=== PATIENT | female | born 1985 | race Caucasian/White ===

== ENCOUNTER 2017-07-09 06:00 | Inpatient (IN) ==
--- OUTSIDE RECORDS SUMMARY | 2017-07-09 06:38 | External Medical Summary | Continuity of Care Document ---
:1985 Author Organization [facility] Address [address] [place], [place] [address] Phone Support Name Relationship Address Phone Delaney Bañuelos spouse [address] [phone] [place] [address] Allergies, Adverse Reactions, Alerts Substance Reaction Severity Status No Known Drug Allergies Unknown Active Medications Medication Instructions Dosage Effective Dates Status Comments (start - stop) Plus with take 1 tablet by Not Available - Active Iron (calcium ORAL route every carbonate) 27 mg-1 day mg Tab Tylenol 325 mg Tab take 1 tablet - Active (325MG) by oral route every 4 hours as needed Zyrtec 10 mg take 1 tablet by 10 MG - Active tablet oral route every day as needed Problems Condition Effective Dates (start - stop) Clinical Status Encounter for suprvsn of normal - , third trimester 30 weeks gestation of - Suprvsn of preg w poor reprodctv or - obstet hx, second tri Partial placenta previa NOS or w/out - hemorrhage, second trimester 18 weeks gestation of - Suprvsn of preg w poor reprodctv or - obstet hx, third tri Partial placenta previa NOS or w/out - hemorrhage, third trimester 30 weeks gestation of - Maternal care for excess growth, - second tri, unsp Encounter for suprvsn of normal - , second trimester 18 weeks gestation of - Partial placenta previa NOS or w/out - hemorrhage, second trimester Encounter for suprvsn of normal - , second trimester 27 weeks gestation of - 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) w/o abn findings Pap Smear Screening, Cervix Encounter for surveillance of contraceptive pills Encntr screen for infections w sexl - mode of transmiss Encounter for screening for oth - infec/parastc diseases Encounter for suprvsn of normal - , first trimester Encounter for screening of - mother 10 weeks gestation of - Encounter for suprvsn of normal - , second trimester 22 weeks gestation of - Encounter for suprvsn of normal - , second trimester 14 weeks gestation of - Encounter for suprvsn of normal - , third trimester 32 weeks gestation of - Active Procedures Procedure Date Immuniz admnin, 1 vac, sngl/combo 19 Yrs + OB Visit No Charge Results Test Name Date and Time Measure Units Reference Range Abnormal Flag Comments Unknown Advance Directives Directive Yes / No Effective Date File Name Unknown Encounters Encounter Practice Location Reason(s) Diagnoses Date Provider Care Team Description For Visit Members Kala Ames Encounter for May- Chamorro Referring In Womens suprvsn of normal 5-201 Argelia. Provider: Health [place], , third 7 700 Argelia Chamorro PO Box [id number] weeks Medical , 700 1522, gestation of [facility], Dr [facility] Dr [address], 120, [place] 120, [id number], Kwaku Ames, [facility], [place], tel: [phone]. [phone] , [place]. tel: tel: [phone] Kala Ames Encounter for May- Chamorro Referring In Womens suprvsn of normal 3-201 Argelia. Provider: Health [place], , third 7 700 Argelia Chamorro PO Box [id number] weeks Medical K, 700 1522, gestation of [facility], [place] [address], 120, [place] 120, [id number], Kwaku Ames, [facility], [place], tel: [phone]. , [place]. tel: tel: [phone] [facility] Suprvsn of preg w Aug-0 Chamorro Referring In Womens Ultrasound poor reprodctv or 3-201 Argelia. Provider: Zina ALVAREZ, obstet hx, third 7 700 Argelia Chamorro PO Box [facility], 700 1522, placenta previa [facility], NOS or w/out , [facility] Dr PARKER, hemorrhage, third 120, [place] 120, [id number], [email or web address] weeks Kwaku Ames, gestation of KE[place], [place], tel: [phone]. , [place]. tel: tel: [phone] [facility] Partial placenta Apr- Chamorro Referring In Womens previa NOS or 1-201 Argelia. Provider: Zina ALVAREZ, w/out hemorrhage, 7 700 Argelia Chamorro PO Box [facility] Medical , 700 1522, trimesterEncounte [facility], for suprvsn of , [facility] Dr [address]ARKER, normal , 120, [place] 120, [id number], second Kwaku Ames, [place] [id number] weeks KEITH PARKER, tel: gestation of [phone]. , [place]. tel: tel: [phone] [facility] Encounter for Darek-0 Chamorro Referring In Womens suprvsn of normal 6-201 Argelia. Provider: Zina ALVAREZ, , second 7 700 Argelia Chamorro PO Box [email or web address] weeks Medical K, 700 1522, gestation of [facility], , [facility] Dr [address]ARKER, 120, [place] 120, , Kwaku Ames, [place] KEITH P[place]ER, tel: [phone]. , [place]. tel: tel: [phone] Kala Ames Suprvsn of preg w February-1 [place] Referring In Womens poor reprodctv or 1-201 Argelia. Provider: Zina ALVAREZ, obstet hx, second 7 700 Argelia Chamorro PO Box [facility], 700 1522, placenta previa [facility], NOS or w/out , [facility] Dr PARKER, hemorrhage, 120, [place] 120, , second Kwaku Ames, weeks KEITH PARKER, tel: gestation of [phone]. , [place]. tel: tel: [phone] Kala Ames Maternal care for May- Chamorro Referring In Womens Ultrasound excess -201 Argelia. Provider: Health KIM, growth, second 7 700 Argelia Chamorro PO Box tri, [facility], 700 1522, unspEncounter for [facility], suprvsn of normal , [facility] Dr [address]ARKER, , second 120, [place] 120, , [email or web address] weeks Kwaku Ames, gestation of KEITH PARKER, tel: [phone]. , [place]. tel: tel: [phone] Kala Ames Encounter for Apr- Chamorro Referring In Womens suprvsn of normal -201 Argelia. Provider: Health KIM, , second 7 700 Argelia Chamorro PO Box [id number] weeks [facility], 700 1522, gestation of [facility], Dr, [facility] Dr PARKER, 120, [place] 120, , Kwaku Ames, KEITH PARKER, tel: [phone]. , [place]. tel: tel: [phone] Kala Ames Encntr screen for Mar-1 Chamorro Referring In Womens infections w sexl 4-201 Argelia. Provider: Health KIM, mode of 7 700 Argelia [place]amorro PO Box [facility], 700 1522, r for screening [facility], for oth , [facility] Dr PARKER, infec/parastc 120, [place] 120, , diseasesEncounter Kwaku Ames, for suprvsn of [place], KEITH, tel: normal , [phone]. first , [place]. 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 Provider: Zina ALVAREZ, (routine) w/o abn 6 700 Argelia Chamorro PO Box findingsPap Smear Medical K, 700 1522, Screening, [place], CervixEncjuan jose Schmidt, [facility] Dr [address]ER, for surveillance 120, [place] 120, , of contraceptive [place], [place], tel:[phone]. , [place]. tel: tel: [phone] Kala Ames Dec-2 Chamorro Referring In Womens 4-201 Argelia. Provider: Zina ALVAREZ, 5 700 Argelia [place]amorro PO Box Medical K, 700 1522, [place] [address], [facility] Dr [address]ARKER, 120, [place] 120, , Kwaku Ames, [place], [place], tel: [phone]. , [place]. tel: tel: [phone] Kala Ames Aug- Chamorro In Womens 1-201 Argelia. Zina ALVAREZ, 4 700 PO Box Medical 1522, [place] [address] [place]aney, [facility] [place], 120, , [place], [place], tel:[phone] , [place]. tel: [phone] Kala Ames Oct- Chamorro Referring In Womens 0-201 Argelia. Provider: Zina ALVAREZ, 2 700 Argelia [place]amorro PO Box Medical K, 700 1522, [place] [address], [facility] Dr PARKER, 120, [place] 120, , Kwaku Ames, [place], [place], tel: [phone]. , [place]. tel: tel: [phone] Kala Ames Mar- Chamorro In Womens 1-200 Argelia. Zina ALVAREZ, 9 700 PO Box Medical 1522, [place] [address] Delaney, [facility] [place], 120, [id number], [facility], tel:[phone] , [place]. tel: [phone] [facility] Darek-0 [place]am[place] In Womens 4-200 [facility], 8 700 [facility] [address], [address] Delaney, [place], 120, [id number], [facility] [place], tel:[phone] [address] , [place]. tel: [phone] Family History Family Member Diagnosis Age At Onset No family history of Ovarian Cancer No family history of Hypertension No family history of Diabetes No family history of Pulmonary Embolism Mother Uterine Cancer 56 No family history of Thyroid Disorder Maternal Grandmother Lymphoma No family history of Osteoporosis No family history of Breast Cancer No family history of Colon Cancer No family history of Venous Thrombosis No family history of Cardiovascular Disease No family history of Stroke Immunizations Vaccine Date Status Comments Tdap completed Source: New Immunization Record Tdap completed Source: New Immunization Record Influenza, injectable, completed Note: Invalid documented admin quadrivalent, preservative free, date was . ; 3 yrs or older Source: Other Provider Payers Payer name Insurance type Covered republican ID Authorization(s) [facility] [id number] [facility] [id number] [facility] [id number] Social History Type Description Quantity Date Captured Alcohol Use Details No Caffeine Use Details Unknown Tobacco Use Status Unknown Smoking Status Never smoker Vital Signs Date / Height Weight BMI Pulse Blood Temperature Respiratory Body Head BMI Time: Rate Pressure Rate Surface Circumference percentile Area 6 9:50 kg/m AM eter (2) 164.20 26.5 110/64 -2017 lbs 0 mm[Hg] 9:55 kg/m AM eter (2) Chief Complaint And Reason For Visit Unknown Chief Complaint And Reason For Visit Reason For Referral Reason For Referral Unknown Plan Of Care Date Type Action Status Appointment Kelley Bañuelos BOOKED Future Order: Radiology Order Ultrasound OB Follow-up ([id number]) Ordered Future Order: Radiology Order Complete OB Ultrasound > 14 Ordered Weeks ([id number]) Future Order: Lab Order Pap Smear With HPV Reflex If ASCUS Ordered ([id number]) Date Type Problem Goal Intervention Status Start Date Unknown. History Of Present Illness Encounter Date Complaint History Of Present Illness This patient has no known history of present illness Functional Status Encounter Date Functional Assessment Cognitive Assessment Unknown Medications Administered Medication Instructions Dosage Effective Dates (start - stop) Status Comments Drug Treatment Unknown Instructions Date Instruction Additional Information gestational glucose lab screening domestic violence seat belt use childbirth classes / hospital facilities hospital registration genetic testing HIV and other routine tests risk factors identified by history anticipated course of care nutrition and weight gain counseling, special diet toxoplasmosis precautions (cats / raw meat) sexual activity exercise indications for ultrasound influenza vaccine environmental / work hazards travel use of any medications (including supplements, vitamins, herbs, OTC drugs)
--- OUTSIDE RECORDS SUMMARY | 2017-07-09 06:38 | External Medical Summary | Continuity of Care Document ---
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) w/o abn findings Pap [...] third trimester 32 weeks gestation of - Encounter for suprvsn of normal - , third trimester 30 weeks gestation of - Active Procedures Procedure Date Immuniz admnin, 1 vac, sngl/combo 19 Yrs + TDAP VACCINE >7 IM Results Test Name Date and Time Measure Units Reference Range Abnormal Flag Comments Unknown Advance Directives Directive Yes / No Effective Date File Name Unknown Encounters Encounter Practice Location Reason(s) Diagnoses Date Provider Care Team Description For Visit Members Kala Ames Encounter for Chamorro Referring In Womens suprvsn of normal 5-201 Argelia. Provider: Health [place], , third 7 700 Argelia Chamorro PO Box weeks Medical , 700 1522, gestation of [place], ariadna Schmidt, [facility] Dr [address]ARKER, 120, [place] 120, [id number], Kwaku Ames, [facility], [place], tel: [phone]. , [place]. tel: tel: [phone] Kala Ames Chamorro Referring In Womens 4-201 Argelia. Provider: Health [place], 7 700 Argelia [place]amorro PO Box Medical , 700 1522, [place]zar, , [facility] Dr [address]ARKER, 120, [place] 120, [id number], Kwaku Ames, [place], [place], tel: [phone]. , [place]. tel: tel: [phone] Kala Ames Encounter for Aug-0 Chamorro Referring In Womens suprvsn of normal 3-201 Argelia. Provider: Zina ALVAREZ, , third 7 700 Argelia [place]amorro PO Box [id number] weeks Medical K, 700 1522, gestation of [facility], , [facility] Dr [address]ARKER, 120, [place] 120, , Kwaku Ames, [place], [place], tel: [phone]. , [place]. tel: tel: [phone] Kala Ames Suprvsn of preg w Aug-0 Chamorro Referring In Womens Ultrasound poor reprodctv or 3-201 Argelia. Provider: Zina ALVAREZ, obstet hx, third 7 700 Argelia [place]amorro PO Box triPartial Medical K, 700 1522, [facility] or w/out , [facility] Dr PARKER, hemorrhage, third 120, [place] 120, , [id number] weeks Kwaku Ames, [place] gestation of KEITH, KEITH, tel: [phone]. , [place]. tel: tel: [phone] Kala Ames Partial placenta Nitish-1 Chamorro Referring In Womens previa NOS or 1-201 Argelia. Provider: Zina ALVAREZ, w/out hemorrhage, 7 700 Argelia Chamorro PO Box second Medical K, 700 1522, trimesterEncounte [facility], r for suprvsn of Dr, [facility] Dr PARKER, normal , 120, [place] 120, [id number], second Kwaku Ames, [place] [email or web address] weeks KEITH [place], tel: gestation of [phone]. , [place]. tel: tel: [phone] Kala Ames Encounter for Darek-0 Chamorro Referring In Womens suprvsn of normal 6-201 Argelia. Provider: Zina ALVAREZ, , second 7 700 Argelia [place]amorro PO Box [id number] weeks Medical , 700 1522, [facility], , [facility] Dr PARKER, 120, [place] 120, [id number], Kwaku Ames, KEITH PARKER, tel: [phone]. , [place]. tel: tel: [phone] Kala Ames Suprvsn of preg w February- Chamorro Referring In Womens poor reprodctv or -201 Argelia. Provider: Zina ALVAREZ, obstet hx, second 7 [address] [facility] 700 1522, placenta previa [facility], NOS or w/out , [facility] Dr PARKER, hemorrhage, 120, [place] 120, , second Kwaku Ames, weeks KEITH PARKER, tel: gestation of [phone]. , [place]. tel: tel: [phone] Kala Ames Maternal care for February- Chamorro Referring In Womens Ultrasound excess - Argelia. Provider: Zina ALVAREZ, growth, second 7 700 Argelia Chamorro PO Box [facility], 700 1522, unspEncounter for [facility], suprvsn of normal , [facility] Dr PARKER, , second 120, [place] 120, [id number], weeks Kwaku Ames, gestation of KEITH PARKER, tel: [phone]. , [place]. tel: tel: [phone] Kala Ames Encounter for Apr-1 Chamorro Referring In Womens suprvsn of normal -201 Argelia. Provider: Zina ALVAREZ, , second 7 700 Argelia Chamorro PO Box weeks [facility], 700 1522, gestation of [facility], , [facility] Dr [address]ARKER, 120, [place] 120, , Kwaku Ames, KEITH [place], tel: [phone]. , [place]. tel: tel: [phone] Kala Ames Encntr screen for Mar-1 Chamorro Referring In Womens infections w sexl 4-201 Argelia. Provider: Zina ALVAREZ, mode of 7 700 Argelia Chamorro PO Box transmissEncounte Medical , 700 1522, r for screening [facility], for oth , [facility] Dr [address]ARKER, infec/parastc 120, [place] 120, , diseasesEncounter Kwaku Fate, for suprvsn of [place], [place], tel: normal , [phone]. [facility] , [place]. tel: trimesterEncounte tel: [phone] r for [phone] screening of [id number] weeks gestation of [facility] [place] Encntr for adult live in caregiver Darek- Chamorro Referring In Womens exam (general) 4-201 Argelia. Provider: Zina ALVAREZ, (routine) w/o abn 6 700 Argelia Chamorro PO Box findingsPap Smear Medical , 700 1522, Screening, [place], CervixEncjuan jose Schmidt, [facility] Dr PARKER, for surveillance 120, [place] 120, , of contraceptive Kwaku [facility] pills [place], tel: [phone]. , [place]. tel: tel: [phone] Kala Ames Dec- Chamorro Referring In Womens 4-201 Argelia. Provider: Zina ALVAREZ, 5 700 Argelia [place]amorro PO Box Medical , 700 1522, [place] [address], [facility] Dr PARKER, 120, [place] 120, , Kw[place], [place], tel: [phone]. , [place]. tel: tel: [phone] Kala Ames Aug- Chamorro In Womens 1-201 Argelia. Zina ALVAREZ, 4 700 PO Box Medical 1522, [address] [address], [facility] KEITH, 120, [id number], [facility], tel:[phone] , [place]. tel: [phone] Kala Ames Oct- Chamorro Referring In Womens 0-201 Argelia. Provider: Zina ALVAREZ, 2 700 Argelia [place]amorro PO Box Medical , 700 1522, [place] [address], [facility] [place], 120, [place] 120, [id number], [facility] [place], [place], tel: [phone]. , [place]. tel: tel: [phone] [facility] [place] Darek-1 Chamorro In Womens 1-200 Argelia. Health [place], 9 700 PO Box Medical 1522, [address] [address]aney, [facility] KEITH, 120, [id number], [facility] [place], tel: [phone] , [place]. tel: [phone] [facility] Darek-0 Chamorro In Womens 4-200 Argeila. Health [place], 8 700 PO Box Medical 1522, [address] [address]aney, [facility] KEITH, 120, [id number], [facility] [place], tel: [phone] , [place]. tel: [phone] Family History Family Member Diagnosis Age At [...] Provider Payers Payer name Insurance type Covered democrat ID Authorization(s) [facility] [id number] [facility] [id number] [facility] [id number] Social History Type Description Quantity Date Captured Unknown Vital Signs Date / Height Weight BMI Pulse Blood Temperature Respiratory Body Head BMI Time: Rate Pressure Rate Surface Circumference percentile Area Unknown Chief Complaint And Reason For Visit Unknown Chief Complaint And Reason For Visit Reason For Referral Reason For Referral Unknown Plan Of Care Date Type Action Status Appointment Kelley Bañuelos BOOKED Future Order: Radiology Order Ultrasound OB Follow-up ([id number]) Ordered Future Order: Radiology Order Complete OB Ultrasound > 14 Ordered Weeks ([id number]) Future Order: Lab Order Pap Smear With [...]
--- OUTSIDE RECORDS SUMMARY | 2017-07-09 06:38 | External Medical Summary | Continuity of Care Document ---
:1985 Author Organization [facility] Address [address] [place], [place] [address] Phone Support Name Relationship Address Phone Delaney Bañuelos spouse [address] [phone] [place] [address] Allergies, Adverse Reactions, Alerts Substance Reaction Severity [...] Effective Dates (start - stop) Clinical Status Partial placenta previa NOS or w/out - hemorrhage, second trimester Encounter for suprvsn of normal - , second trimester 27 weeks gestation of - Suprvsn of preg w poor reprodctv or - obstet hx, second tri Partial placenta previa NOS or w/out - hemorrhage, second trimester 18 weeks gestation of - Maternal care for excess growth, - second tri, unsp Encounter for suprvsn of normal - , second trimester 18 weeks gestation of - 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 Pap [...] second trimester 14 weeks gestation of - Active Procedures Procedure Date OB Visit No Charge Hemoglobin count, colorimetric Hematocrit blood count Glucose test Venpnctr fngr/heel/ear stick routne Results Test Name Date and Time Measure Units Reference Range Abnormal Flag Comments Panel Description: Glucose [Mass/volume] in Serum or Plasma --1 hour post 50 g glucose PO GLUCOSE, 111 mg/dL <140 N Test performed at [employer] GESTATIONAL SCREEN 09:55:00 M[employer] [id number] ([id number])-[address] [place] [address]Uuurvzzk: KVNG MAHARAJ DO,MPH Panel Description: HEMOGLOBIN + HEMATOCRIT HEMOGLOBIN 09:55:00 11.8 g/dL 11.7-15.5 N HEMATOCRIT 09:55:00 34.9 % 35.0-45.0 L REPORT COMMENT:FASTING :NOTest performed at [facility] [id number] [place] [address]Lhcgyubo: KVNG MAHARAJ DO,MPH Advance Directives Directive Yes / No Effective Date File Name Unknown Encounters Encounter Practice Location Reason(s) Diagnoses Date Provider Care Team Description For Visit Members Kala Ames Partial placenta Chamorro Referring In Womens previa NOS or 1201 Argelia. Provider: Health PA, w/out hemorrhage, 7 700 Argelia Chamorro PO Box [facility] Medical K, 700 1522, [facility] Medical delaney Baltazar for suprvsn of , [address] [place] [address] PARKER, normal , 120, Ugo 120, [id number], second Kwaku Ames, weeks KEITH PARKER, tel:[phone] gestation of [phone]. [id number] , [place]. tel:[phone] tel: [phone] Kala Ames Encounter for Darek-0 Chamorro Referring In Womens suprvsn of normal 6-201 Argelia. Provider: Zina ALVAREZ, , second 7 700 Argelia Chamorro PO Box [id number] weeks Medical , 700 1522, gestation of [facility], , [facility] Dr PARKER, 120, Ugo 120, , Kwaku [place], [place], [place], tel: [phone]. , [place]. tel: tel: [phone] Kala Ames Suprvsn of preg w May-1 Chamorro Referring In Womens poor reprodctv or 1-201 Argelia. Provider: Zina ALVAREZ, obstet hx, second 7 700 Argelia Chamorro PO Box triPartial Medical , 700 1522, placenta previa [facility], NOS or w/out , [facility] Dr PARKER, hemorrhage, 120, Ugo 120, , second Kwaku Ames, [email or web address] weeks KEITH PARKER, tel: gestation of [phone]. , [place]. tel: tel: [phone] Kala Ames Maternal care for February-1 Chamorro Referring In Womens Ultrasound excess 1-201 Argelia. Provider: Zina ALVAREZ, growth, second 7 700 Argelia Chamorro PO Box tri, [facility], 700 1522, unspEncounter for [facility], suprvsn of normal , [facility] Dr PARKER, , second 120, Ugo 120, [id number], [email or web address] weeks Kwaku Ames, [place] gestation of KEITH, KEITH, tel: [phone]. , [place]. tel: tel: [phone] Kala Ames Encounter for Apr-1 Chamorro Referring In Womens suprvsn of normal 1-201 Argelia. Provider: Zina ALVAREZ, , second 7 700 Argelia Chamorro PO Box [email or web address] weeks [facility], 700 1522, gestation of [facility], , [facility] Dr PARKER, 120, Ugo 120, , Kwaku Ames, KEITH PARKER, tel:[phone]. , [place]. tel: tel: [phone] Kala Ames Encntr screen for Mar-1 Chamorro Referring In Womens infections w sexl - Argelia. Provider: Health KIM, mode of 7 700 Argelia Chamorro PO Box transmissEncounte Medical , 700 1522, r for screening [place], for oth , [facility] Dr PARKER, infec/parastc 120, Ugo 120, , diseasesEncounter Kwaku [place], for suprvsn of [place], tel: normal , [phone]. [facility] , [place]. 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 Provider: Zina ALVARZE, (routine) w/o abn 6 700 Argelia Chamorro PO Box findingsPap Smear Medical , 700 1522, Screening, [place] Betty Baltazar, CervixMaximus Schmidt, [facility] Dr PARKER, for surveillance 120, Ugo 120, , of contraceptive Kwaku Ames, pills KEITH PARKER, tel:[phone]. , [place]. tel: tel: [phone] Kala Ames Mar-2 Chamorro Referring In Womens - Argelia. Provider: Zina ALVAREZ, 5 700 Argelia Chamorro PO Box Medical K, 700 1522, [place] Betty Bal[address], [facility] Dr PARKER, 120, Ugo 120, , Kwaku Ames, KEITH [place], tel:[phone]. , [place]. tel: tel: [phone] Kala Ames Nov-1 Chamorro In Womens - Argelia. Health KIM, 4 700 PO Box Medical [address], [address], [facility] [place], 120, [id number], [facility] [place], tel: [phone] , [place]. tel: [phone] Kala Ames Oct- Chamorro Referring In Womens 0-201 Argelia. Provider: Health PA, 2 700 Argelia Chamorro PO Box Medical K, 700 1522, [place] Betty [address], [facility] [place], 120, Ugo 120, [id number], Kwaku [place], [place], [place], tel: [phone]. , [place]. tel: tel: [phone] Kala Ames Mar- Chamorro In Womens 1-200 Argelia. Health PA, 9 700 PO Box Medical 15[address], [place] Dr Delaney, [facility] [place], 120, [id number], [facility] [place], tel: [phone] , [place]. tel: [phone] Kala Ames Mar-0 Chamorro In Womens 4-200 Argelia. Health PA, 8 700 PO [place] Medical [address], [place] Dr Delaney, [facility] [place], 120, [id number], [facility] [place], tel: [phone] , [place]. tel: [phone] Family History Family Member Diagnosis Age At [...] Comments Tdap completed Source: New Immunization Record Influenza, injectable, completed Note: Invalid documented admin quadrivalent, preservative free, date was . ; 3 yrs or older Source: Other Provider Payers Payer name Insurance type Covered constitution party ID Authorization(s) [facility] [id number] [facility] [id number] Social History Type Description Quantity Date Captured Alcohol Use Details No Caffeine Use Details Unknown Tobacco Use Status Unknown Smoking Status Never smoker Vital Signs Date / Height Weight BMI Pulse Blood Temperature Respiratory Body Head BMI Time: Rate Pressure Rate Surface Circumference percentile Area 25.0 5 8:51 kg/m AM eter (2) 162.70 26.2 108/62 -2017 lbs 6 mm[Hg] 8:56 kg/m AM eter (2) Chief Complaint And Reason For Visit Unknown Chief Complaint And Reason For Visit Reason For Referral Reason For Referral Unknown Plan Of Care Date Type Action Status Appointment Kelley Bañuelos BOOKED Appointment Kelley Bañuelos BOOKED Future Order: Radiology Order Complete OB Ultrasound > 14 Ordered Weeks ([id number]) Future Order: Lab Order Pap Smear With [...]
--- OUTSIDE RECORDS SUMMARY | 2017-07-09 06:39 | External Medical Summary | Continuity of Care Document ---
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 Pap Smear Screening, Cervix Encounter for surveillance of contraceptive pills Encounter for suprvsn of normal - , first trimester Encntr screen for infections w sexl - mode of transmiss Encounter for screening for oth - infec/parastc diseases Encounter for screening of - mother 10 weeks gestation of - Encounter for suprvsn of normal - , second trimester 22 weeks gestation of - 14 weeks gestation of - Encounter for suprvsn of normal - , second trimester Encounter for suprvsn of normal - , third trimester 30 weeks gestation of - 34 weeks gestation of - Encounter for suprvsn of normal - , third trimester Active Procedures Procedure Date OB Visit No Charge Results Test Name Date and Time Measure Units Reference Range Abnormal Flag Comments Unknown Advance Directives Directive Yes / No Effective Date File Name Unknown Encounters Encounter Practice Location Reason(s) Diagnoses Date Provider Care Team Description For Visit Members Kala Ames 34 weeks Chamorro Referring In Womens gestation of 8-201 Argelia. Provider: [facility], pregnancyEncounte 7 700 Argelia Chamorro PO Box r for suprvsn of Medical K, 700 1522, normal , [facility], third trimester , [facility] Dr PARKER, 120, Ugo 120, [id number], Kwaku Ames, [facility], [place], tel:[phone]. [id number] , [place]. tel: tel: [phone] Kala Ames Encounter for Chamorro Referring In Womens suprvsn of normal 5-201 Argelia. Provider: [facility], , third 7 700 Argelia Chamorro PO Box [email or web address] weeks Medical K, 700 1522, gestation of [facility], , [facility] Dr PARKER, 120, Ugo 120, [id number], Kwaku Ames, [place] KEITH PARKER, tel: [phone]. , [place]. tel: tel: [phone] Kala Ames Encounter for Aug-0 Chamorro Referring In Womens suprvsn of normal 3-201 Argelia. Provider: Zina ALVAREZ, , third 7 700 Argelia [place]amorro PO Box [id number] weeks Medical , 700 1522, gestation of [facility], Dr, [facility] Dr PARKER, 120, Ugo 120, [id number], Kwaku [place], [place], tel: [phone]. , [place]. tel: tel: [phone] Kala Ames Suprvsn of preg w Aug-0 Chamorro Referring In Womens Ultrasound poor reprodctv or 3-201 Argelia. Provider: Zina ALVAREZ, obstet hx, third 7 700 Argelia Chamorro PO Box triPartial Medical , 700 1522, placenta previa [facility], NOS or w/out , [facility] Dr PARKER, hemorrhage, third 120, Ugo 120, [id number], [email or web address] weeks Kwaku Ames, gestation of [place], KEITH, tel: [phone]. , [place]. tel: tel: [phone] Kala Ames Partial placenta Nitish-1 Chamorro Referring In Womens previa NOS or 1-201 Argelia. Provider: Zina ALVAREZ, w/out hemorrhage, 7 700 Argelia Chamorro PO Box second Medical K, 700 1522, trimesterEncounte [facility], r for suprvsn of Dr, [facility] Dr PARKER, normal , 120, Ugo 120, [id number], second Kwaku Ames, [place] [email or web address] weeks KEITH PARKER, tel: gestation of [phone]. , [place]. tel: tel: [phone] Kala Ames Encounter for Darek-0 Chamorro Referring In Womens suprvsn of normal 6-201 Argelia. Provider: Zina ALVAREZ, , second 7 700 Argelia Chamorro PO Box [id number] weeks Medical K, 700 1522, gestation of [facility], Dr, [facility] Dr PARKER, 120, Ugo 120, , Kwaku Ames, KEITH PARKER, tel: [phone]. , [place]. tel: tel: [phone] Kala Ames Suprvsn of preg w Chamorro Referring In Womens poor reprodctv or Argelia. Provider: Zina ALVAREZ, obstet hx, second 7 700 Argelia Chamorro PO Box triPartial Medical , 700 1522, placenta previa [facility], NOS or w/out Dr, [facility] Dr PARKER, hemorrhage, 120, Ugo 120, , second Kwaku Ames, weeks KEITH PARKER, tel: gestation of [phone]. , [place]. tel: tel: [phone] Kala Ames Maternal care for Chamorro Referring In Womens Ultrasound excess Argelia. Provider: Zina ALVAREZ, growth, second 7 700 Argelia Chamorro PO Box tri, [facility], 700 1522, unspEncounter for [facility], suprvsn of normal Dr, [facility] Dr PARKER, , second 120, Ugo 120, [id number], [email or web address] weeks Kwaku Ames, gestation of KEITH KEITH, tel: [phone]. , [place]. tel: tel: [phone] Kala Ames 14 weeks Chamorro Referring In Womens gestation of Argelia. Provider: Zina ALVAREZ, pregnancyEncounte 7 700 Argelia [place]amorro PO Box r for suprvsn of [facility], 700 1522, normal , [facility], second trimester , [facility] Dr PARKER, 120, Ugo 120, [id number], Kwaku Ames, KEITH PARKER, tel: [phone]. , [place]. tel: tel: [phone] Kala Ames Encounter for Mar-1 Chamorro Referring In Womens suprvsn of normal 4-201 Argelia. Provider: Health KIM, , first 7 700 Argelia Chamorro PO Box trimesterEncntr Medical , 700 1522, screen for [facility] Delaney, infections w carlos eduardo Schmidt, [facility] Dr PARKER, mode of 120, Ugo 120, [id number], transmissEncounte Kwaku Ames, r for screening KEITH PARKER, tel: for oth [phone]. infec/parastc , [place]. 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 Provider: Zina ALVAREZ, (routine) w/o abn 6 700 Argelia Chamorro PO Box findingsPap Smear Medical , 700 1522, Screening, [facility] Delaney, CervixMaximus Schmidt, [facility] Dr PARKER, for surveillance 120, Ugo 120, , of contraceptive Kwaku Ames, pills KEITH, KEITH, tel:[phone]. , [place]. tel: tel: [phone] Kala Ames Dec-2 Chamorro Referring In Womens 4-201 Argelia. Provider: Zina ALVAREZ, 5 700 Argelia Chamorro PO Box Medical , 700 1522, [place] [address], [facility] Dr PARKER, 120, Ugo 120, , Kwaku Ames, KEITH, KEITH, tel: [phone]. , [place]. tel: tel: [phone] Kala Ames Aug- Chamorro In Womens 1-201 Argelia. Zina ALVAREZ, 4 700 PO Box Medical 1522, [place] Dr Delaney, [facility] KEITH, 120, , [facility] [place]ITH, tel:[phone] , [place]. tel: [phone] Kala Ames Semaj- Chamorro Referring In Womens 0-201 Argelia. Provider: Health PA, 2 700 Argelia Chamorro PO Box Medical K, 700 1522, [place] [address], [facility] [place], 120, Ugo 120, [id number], Kwaku [place], [place], [place], tel:[phone]. , [place]. tel: tel: [phone] Associates [facility] Darek-1 Chamorro In Womens 1-200 Argelia. Health PA, 9 700 PO Box Medical 1522, [place] Dr Delaney, [facility] [place], 120, [id number], [facility] [place], tel: [phone] , [place]. tel: [phone] Associates [facility] Darek-0 Chamorro In Womens 4-200 Argelia. Health PA, 8 700 PO Box Medical 1522, [place] Dr Delaney, [facility] [place], 120, [id number], [facility] [place], tel: [phone] , [place]. tel: [phone] Family History Family Member Diagnosis Age At [...] Provider Payers Payer name Insurance type Covered libertarian ID Authorization(s) [facility] KEITH [id number] [facility] KEITH [id number] [facility] [id number] Social History Type Description Quantity Date Captured Alcohol Use Details No Caffeine Use Details Unknown Tobacco Use Status Unknown Smoking Status Never smoker Vital Signs Date / Height Weight BMI Pulse Blood Temperature Respiratory Body Head BMI Time: Rate Pressure Rate Surface Circumference percentile Area 165.40 26.6 120/68 -2017 lbs 9 mm[Hg] 11:13 kg/m AM eter (2) Chief Complaint And Reason For Visit Unknown Chief Complaint And Reason For Visit Reason For Referral Reason For Referral Unknown Plan Of Care Date Type Action Status Appointment Kelley Bañuelos BOOKED Future Order: Radiology Order Ultrasound OB Follow-up ([id number]) Ordered Future Order: Radiology Order Complete OB Ultrasound > 14 Ordered Weeks ([id number]) Future Order: Lab Order Pap Smear With [...]
--- OUTSIDE RECORDS SUMMARY | 2017-07-09 06:39 | External Medical Summary | Continuity of Care Document ---
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 Provider: Zina ALVAREZ, , third 7 700 Argelia Chamorro PO Box [id number] weeks Medical , 700 1522, gestation of [facility] Dr [facility] Dr PARKER, 120, Ugo 120, [id number], Kwaku Ames, [place], [place], tel: [phone]. , [place]. tel: tel: [phone] Kala Ames Encounter for May- Chamorro Referring In Womens suprvsn of normal 3-201 Argelia. Provider: Zina ALVAREZ, , third 7 700 Argelia Chamorro PO Box [email or web address] weeks Medical , 700 1522, gestation of [facility], [facility] Dr [facility] Dr PARKER, 120, Ugo 120, [id number], Kwaku Ames, [place], [place], tel: [phone]. , [place]. tel: tel: [phone] Kala Ames Suprvsn of preg w Aug-0 Chamorro Referring In Womens Ultrasound poor reprodctv or 3-201 Argelia. Provider: Zina ALVAREZ, obstet hx, third 7 700 Argelia Chamorro PO Box [facility] Medical K, 700 1522, placenta previa [facility] [place], NOS or w/out , [facility] Dr PARKER, hemorrhage, third 120, Ugo 120, [id number], [email or web address] weeks Kwaku Ames, [place] gestation of KEITH, KEITH, tel: [phone]. , [place]. tel: tel: [phone] Kala Ames Partial placenta Apr-1 Chamorro Referring In Womens previa NOS or 1-201 Argelia. Provider: Zina ALVAREZ, w/out hemorrhage, 7 700 Argelia Chamorro PO Box second Medical K, 700 1522, trimesterEncounte [facility] [place], for suprvsn of , [facility] Dr PARKER, normal , 120, Ugo 120, [id number], second Kwaku Ames, [place] weeks KEITH PARKER, tel: gestation of [phone]. , [place]. tel: tel: [phone] Kala Ames Encounter for Darek-0 Chamorro Referring In Womens suprvsn of normal 6-201 Argelia. Provider: Zina ALVAREZ, , second 7 700 Argelia Chamorro PO Box [id number] weeks Medical , 700 1522, gestation of [facility] [place], , [facility] Dr PARKER, 120, Uog 120, [id number], Kwaku [place], [place] KEITH PARKER, tel: [phone]. , [place]. tel: tel: [phone] Kala Ames Suprvsn of preg w May-1 Chamorro Referring In Womens poor reprodctv or 1-201 Argelia. Provider: Zina ALVAREZ, obstet hx, second 7 700 Argelia Chamorro PO Box [facility], 700 1522, [facility] or w/out Dr [facility] Dr PARKER, hemorrhage, 120, Ugo 120, [id number], second Kwaku Ames, [id number] weeks KEITH PARKER, tel: gestation of [phone]. , [place]. tel: tel: [phone] Kala Ames Maternal care for May- Chamorro Referring In Womens Ultrasound excess 201 Argelia. Provider: Health KIM, growth, second 7 700 Argelia Chamorro PO Box [facility], [facility], 700 1522, unspEncounter for [facility], suprvsn of normal , [facility] Dr PARKER, , second 120, Ugo 120, , [email or web address] weeks Kwaku Ames, gestation of KEITH KEITH, tel:+ [phone]. , [place]. tel: tel: [phone] Kala Ames Encounter for Jan- Chamorro Referring In Womens suprvsn of normal 201 [place]ia. Provider: Zina ALVAREZ, , second 7 700 Argelia Chamorro PO Box [id number] weeks Medical , 700 1522, gestation of [facility] [place], , [facility] Dr PARKER, 120, Ugo 120, [id number], Kwaku Ames, KEITH PARKER, tel: [phone]. , [place]. tel: tel: [phone] Kala Ames Encntr screen for Mar-1 Chamorro Referring In Womens infections w sexl 4-201 Argelia. Provider: Health KIM, mode of 7 700 Argelia [place]amorro [facility] 700 1522, r for screening [facility], for oth Dr [facility] Dr PARKER, infec/parastc 120, Ugo 120, [id number], diseasesEncounter Kwaku [place], for suprvsn of [place], KEITH, tel:+ normal , [phone]. first , [place]. 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 Provider: Zina ALVAREZ, (routine) w/o abn 6 700 Argelia Chamorro PO Box findingsPap Smear Medical K, 700 1522, Screening, [place] Betty Baltazar, CervixEncjuan jose Schmidt, [facility] Dr PARKER, for surveillance 120, Ugo 120, , of contraceptive Kwaku [place], pills KEITH, [place], tel:[phone]. , [place]. tel: tel: [phone] Kala Ames Dec-2 Chamorro Referring In Womens 4-201 Argelia. Provider: Zina ALVAREZ, 5 700 Argelia Chamorro PO Box Medical K, 700 1522, [place] [address], [facility] Dr PARKER, 120, Ugo 120, , Kwaku [place], [place], [place], tel:[phone]. , [place]. tel: tel: [phone] Kala Ames Nov- Chamorro In Womens 1-201 Argelia. Zina ALVAREZ, 4 700 PO Box Medical 15[address], [place] [address] Delaney, [facility] KEITH, 120, , [facility] [place], tel:[phone] , [place]. tel: [phone] Kala Ames Semaj- Chamorro Referring In Womens 0-201 Argelia. Provider: Zina ALVAREZ, 2 700 Argelia Chamorro PO Box Medical K, 700 1522, [place] [address], [facility] Dr PARKER, 120, Ugo 120, , Kwaku [place], [place], [place], tel: [phone]. , [place]. tel: tel: [phone] Kala Ames Darek- Chamorro In Womens 1-200 Argelia. Zina ALVAREZ, 9 700 PO Box Medical 15[address], [place] [address] Delaney, [facility] KEITH, 120, , [place], [place], tel:[phone] , [place]. tel: [phone] Kala Kwaku Chamorro In Womens 4-200 Argelia. [place], 8 700 PO [facility] 15[address], [place] [address] Delaney, [place], 120, [id number], [facility] [place], tel:[phone] 956600 , . tel: [phone] Family History Family Member Diagnosis Age At [...] name Insurance type Covered libertarian ID Authorization(s) [facility] [id number] [facility] [id number] [facility] [id number] Social History Type Description Quantity Date Captured [...] Future Order: Radiology Order Ultrasound OB Follow-up ([id number]) Ordered Future Order: Radiology Order Complete OB Ultrasound > 14 Ordered Weeks ([id number]) Future Order: Lab Order Pap Smear With [...]
--- OUTSIDE RECORDS SUMMARY | 2017-07-09 06:39 | External Medical Summary | Continuity of Care Document ---
:1985 Author Organization [facility] Allergies Active Description Code Type Severity Reaction Onset Reported/ Identified Relationship Clinical to Patient Status Yes No Known 51422 3 N/A N/A Drug 0 Allergies Medications Medication Packaging Start Date Stop Date Route Dosage Sig Packet 04/05/2015 NORETHINDRONE 6 take 1 tablet by oral route every day Tablet 01/02/2016 LEVORA-28 6 take 1 tablet by ORAL route every day Package 03/20/2016 LEVORA-28 7 take 1 tablet by oral route every day Problems Date Dx Coded Attending Type Code Diagnosis Diagnosed By 02/14/2017 Argelia Chamorro O36.62x0 Maternal care for excess growth, second tri, unsp 02/14/2017 Argelia Chamorro Z34.82 Encounter for suprvsn of normal , second trimester 02/14/2017 Argelia Chamorro3A.18 18 weeks gestation of 05/09/2017 Argelia Chamorro O09.293 Suprvsn of preg w poor reprodctv or obstet hx, third tri 05/09/2017 Argelia Chamorro O44.23 Partial placenta previa NOS or w/out hemorrhage, third trimester 05/09/2017 Argelia Chamorro3A.30 30 weeks gestation of Procedures Code Description Performed By Performed On 02/14/2017 34124 Ultrasnd exam of preg uterus, compl 05/09/2017 99870 Ultrasnd preg uterus, flwup/repeat 05/10/2017 08469 Immuniz admnin, 1 vac, sngl/combo TDAP 05/10/2017 44431 VACCINE >7 IM Results Encounters ACCT No. Visit Discharge Status Pt. Type Provider Facility Loc./Unit Complaint Date/Time [id number] 06/25/2017 06/25/2017 CLS Outpatient Chamorro, 15:40:00 23:59:59 Argelia Paz [id number] 06/18/2017 06/18/2017 CLS Outpatient Chamorro, 13:45:00 23:59:59 Argelia Paz [id number] 06/03/2017 06/03/2017 CLS Outpatient Chamorro, 13:30:00 23:59:59 Argelia Paz [id number] 05/21/2017 05/21/2017 CLS Outpatient Chamorro, 11:05:00 23:59:59 Argelia Paz [id number] 05/10/2017 05/10/2017 CLS Outpatient Chamorro, 09:03:00 23:59:59 Argelia Paz [id number] 05/09/2017 05/09/2017 CLS Outpatient [facility], 09:40:00 23:59:59 Argelia Paz [id number] 05/09/2017 05/09/2017 CLS Outpatient [facility], 09:15:00 23:59:59 Argelia Paz [id number] 04/16/2017 04/16/2017 CLS Outpatient Chamorro, 08:40:00 23:59:59 Argelia Paz [id number] 03/12/2017 03/12/2017 CLS Outpatient Chamorro, 08:40:00 23:59:59 Argelia Paz [id number] 02/14/2017 02/14/2017 CLS Outpatient Chamorro, 09:10:00 23:59:59 Argelia Paz [id number] 02/14/2017 02/14/2017 CLS Outpatient [facility]amorro, 08:45:00 23:59:59 Argelia Paz [id number] 01/15/2017 01/15/2017 CLS Outpatient Chamorro, 16:15:00 23:59:59 Argelia Paz [id number] 12/18/2016 12/18/2016 CLS Outpatient Chamorro, 14:30:00 23:59:59 Argelia Paz [id number] 03/20/2016 03/20/2016 CLS Outpatient Chamorro, 14:15:00 23:59:59 Argelia Paz [id number] 01/02/2016 01/02/2016 CLS Outpatient Chamorro, 11:45:00 23:59:59 Argelia Paz [id number] 06/16/2015 06/16/2015 CLS Outpatient Chamorro, 13:07:00 23:59:59 Argelia Paz [id number] 07/02/2017 Document 10:45:00 Registration [id number] 03/20/2016 Document 14:33:01 Registration
--- OUTSIDE RECORDS SUMMARY | 2017-07-09 06:39 | External Medical Summary | Continuity of Care Document ---
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) w/o abn findings Pap [...] third trimester 30 weeks gestation of - Encounter for suprvsn of normal - , third trimester 32 weeks gestation of - Encounter for suprvsn of normal - , third trimester Encounter for screening of - mother 36 weeks gestation of - Active Procedures Procedure Date OB Visit No Charge Results Test Name Date and Time Measure Units Reference Range Abnormal Flag Comments Unknown Advance Directives Directive Yes / No Effective Date File Name Unknown Encounters Encounter Practice Location Reason(s) Diagnoses Date Provider Care Team Description For Visit Members Kala Ames Encounter for Chamorro Referring In Womens suprvsn of normal 2-201 Argelia. Provider: Zina ALVAREZ, , third 7 700 Argelia Chamorro PO Box [facility] K, 700 1522, r for [facility], screening of Dr [facility] [address] PARKER, [email or web address] weeks 120, Ugo 120, [id number], gestation of Kwaku Am[place], [place] KEITH PARKER, tel:[phone]. [id number] , [place]. tel: tel: [phone] Kala Ames Encounter for Chamorro Referring In Womens suprvsn of normal 8-201 Argelia. Provider: Zina ALVAREZ, , third 7 700 Argelia Chamorro PO Box [email or web address] weeks Medical , 700 1522, gestation of [facility], , [facility] Dr PARKER, 120, Ugo 120, , Kwaku Ames, KEITH PARKER, tel: [phone]. , [place]. tel: tel: [phone] Kala Ames Encounter for Aug-1 Chamorro Referring In Womens suprvsn of normal 5-201 Argelia. Provider: Health KIM, , third 7 700 Argelia Chamorro PO Box [email or web address] weeks Medical , 700 1522, gestation of [facility], , [facility] Dr PARKER, 120, Ugo 120, , Kwaku Ames, KEITH PARKER, tel: [phone]. , [place]. tel: tel: [phone] Kala Ames Encounter for Aug-0 Chamorro Referring In Womens suprvsn of normal 3-201 Argelia. Provider: Zina ALVAREZ, , third 7 700 Argelia Chamorro PO Box [email or web address] weeks Medical , 700 1522, gestation of [facility], , [facility] Dr PARKER, 120, Ugo 120, , Kwaku Ames, KEITH PARKER, tel: [phone]. , [place]. tel: tel: [phone] Kala Ames Suprvsn of preg w Aug-0 Chamorro Referring In Womens Ultrasound poor reprodctv or 3-201 Argelia. Provider: Health KIM, obstet hx, third 7 700 Argelia Chamorro PO Box triPartial Medical K, 700 1522, placenta previa [facility], NOS or w/out , [facility] Dr PARKER, hemorrhage, third 120, Ugo 120, [id number], [email or web address] weeks Kwaku Ames, gestation of KEITH PARKER, tel: [phone]. , [place]. tel: tel: [phone] Kala Ames Partial placenta Nitish- Chamorro Referring In Womens previa NOS or 1-201 Argelia. Provider: Zina ALVAREZ, w/out hemorrhage, 7 700 Argelia Chamorro PO Box second Medical , 700 1522, [facility], r for suprvsn of Dr, [facility] Dr PARKER, normal , 120, Ugo 120, [id number], second Kwaku Ames, [email or web address] weeks KEITH, KEITH, tel: gestation of [phone]. , [place]. tel: tel: [phone] Kala Ames Encounter for Darek-0 Chamorro Referring In Womens suprvsn of normal 6-201 Argelia. Provider: Zina ALVAREZ, , second 7 700 Argelia Chamorro PO Box [email or web address] weeks Medical , 700 1522, gestation of [facility] Kashia, , [facility] Dr PARKER, 120, Ugo 120, , Kwaku Am[place], [place] KEITH, KIETH, tel:[phone]. , [place]. tel: tel: [phone] Kala Ames Suprvsn of preg w February- Chamorro Referring In Womens poor reprodctv or -201 Argelia. Provider: Zina ALVAREZ, obstet hx, second 7 700 Argelia Chamorro PO Box triPartial Medical , 700 1522, [facility], NOS or w/out Dr [facility] Dr PARKER, hemorrhage, 120, Ugo 120, [id number], second Kwaku Ames, [place] [email or web address] weeks KEITH PARKER, tel: gestation of [phone]. , [place]. tel: tel: [phone] Kala Ames Maternal care for February- Chamorro Referring In Womens Ultrasound excess - Argelia. Provider: Zina ALVAREZ, growth, second 7 700 Argelia Chamorro PO Box [facility], Medical , 700 1522, unspEncounter for [facility], suprvsn of normal , [facility] Dr PARKER, , second 120, Ugo 120, [id number], [email or web address] weeks Kwaku Ames, [place] gestation of KEITH PARKER, tel: [phone]. , [place]. tel: tel: [phone] Kala Ames Encounter for Apr-1 Chamorro Referring In Womens suprvsn of normal -201 Argelia. Provider: Zina ALVAREZ, , second 7 700 Argelia Chamorro PO Box [id number] weeks Medical , 700 1522, gestation of [facility] Kashia, , [facility] Dr PARKER, 120, Ugo 120, , Kawku Ames, KEITH PARKER, tel: [phone]. , [place]. tel: tel: [phone] Kala Ames Encounter for Mar-1 Chamorro Referring In Womens suprvsn of normal -201 Argelia. Provider: Zina ALVAREZ, , first 7 700 Argelia Chamorro PO Box [facility]Encntr [facility], 700 1522, screen for [facility], infections w sexl , [facility] Dr PARKER, mode of 120, Ugo 120, , transmissEncounte Kwaku Ames, r for screening KEITH PRAKER, tel: for oth [phone]. infec/parastc , [place]. 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 Provider: Zina ALVAREZ, (routine) w/o abn 6 700 Argelia Chamorro PO Box findingsPap Smear Medical , 700 1522, Scre[facility], [facility], CervixEncounter , [facility] Dr PARKER, for surveillance 120, Ugo 120, , of contraceptive Kwaku Ames, pills KEITH PARKER, tel: [phone]. , [place]. tel: tel: [phone] Kala Ames Mar-2 Chamorro Referring In Womens 4-201 Argelia. Provider: Zina ALVAREZ, 5 700 Argelia Chamorro PO Box Medical , 700 1522, Center [address], [facility] [place], 120, Ugo 120, [id number], Kw[place], [place], [place], tel: [phone]. , [place]. tel: tel: [phone] [facility] Nov-1 Chamorro In Womens 1-201 Argelia. Health [place], 4 700 [address] [facility] [address], [address] Delaney, [facility] [place], 120, , [facility] [place], tel:[phone] , [place]. tel: [phone] [facility] Semaj- Chamorro Referring In Womens 0-201 Argelia. Provider: Health [place], 2 700 Argelia Chamorro [facility] [address] [facility] K, 700 1522, [place] [address], [facility] [place], 120, Ugo 120, , [place], [place], [place], tel:[phone]. , [place]. tel: tel: [phone] [facility] Darek-1 Chamorro In Womens 1-200 Argelia. Health [place], 9 700 [facility] Medical [address], [facility] [place], 120, , [facility] [place], tel:[phone] , [place]. tel: [phone] Kala Ames Darek-0 Chamorro In Womens 4-200 Argelia. Health [place], 8 700 [facility] Medical [address] Delaney, [facility] [place], 120, [id number], [facility] [place], tel:[phone] , [place]. tel: [phone] Family History Family Member Diagnosis Age At [...] Provider Payers Payer name Insurance type Covered green party ID Authorization(s) [place] [id number] [place] [id number] [place] [id number] Social History Type Description Quantity Date Captured Alcohol Use Details No Caffeine Use Details Unknown Tobacco Use Status Unknown Smoking Status Never smoker Vital Signs Date / Height Weight BMI Pulse Blood Temperature Respiratory Body Head BMI Time: Rate Pressure Rate Surface Circumference percentile Area 169.40 27.3 lbs 4 mm[Hg] 1:31 kg/m PM eter (2) Chief Complaint And Reason For Visit Unknown Chief Complaint And Reason For Visit Reason For Referral Reason For Referral Unknown Plan Of Care Date Type Action Status Appointment Kelley Bañuelos BOOKED Future Order: Radiology Order Ultrasound OB Follow-up ([id number]) Ordered Future Order: Radiology Order Complete OB Ultrasound > 14 Ordered Weeks ([id number]) Future Order: Lab Order Pap Smear With [...] Treatment Unknown Instructions Date Instruction Additional Information labor signs group B strep screening gestational glucose lab screening domestic violence seat [...]
[2017-07-09 06:41] VITALS: BMI 26.9
[2017-07-09] MEDS ORDERED: ACETAMINOPHEN 500 MG TABLET PO PRN (06:42)
[2017-07-09] MEDS ORDERED: METHYLERGONOVINE 0.2 MG/ML INJECTION IM PRN (06:42)
[2017-07-09] MEDS ORDERED: OXYTOCIN DRIP 30 UNIT/500 ML ML IV PRN ×2 (06:42)
[2017-07-09] MEDS ORDERED: LIDOCAINE 1% (10mg/ml) 2mL INJ PF SDV ID PRN (06:42)
[2017-07-09] MEDS ORDERED: MAG-AL + SIM ORAL LIQUID 30ml PO PRN (06:42)
[2017-07-09] MEDS ORDERED: CARBOPROST 250 MCG/ML INJECTION IM PRN (06:42)
[2017-07-09] MEDS ORDERED: CALCIUM CARBONATE Chewable 500mg TABLET PO PRN (06:42)
[2017-07-09] MEDS: LR 1,000 ML IV PRN ×3 (06:59→14:59)
[2017-07-09] MEDS: D5LR 1,000 ML IV PRN ×2 (06:59→16:50)
[2017-07-09 07:20] VITALS: RESP 16
--- NOTE | 2017-07-09 13:26 | Anesthesia Preoperative Report ---
Anesthesia Epidural/Spinal Rec - Date and Time Date: 07/09/17 Procedure: Labor Epidural Plan: Epidural - Vital Signs Vital Signs: Temperature 98.1 F 07/09/17 10:15 Pulse Rate 62 07/09/17 10:15 Respiratory Rate 16 07/09/17 10:15 Blood Pressure 115/69 07/09/17 10:15 Pulse Oximetry 98 07/09/17 07:12 NPO since: 0700 /Para: P:3 - Medictaions & Allergies Inpatient Medications: Current Medications Acetaminophen (Tylenol) 500 - 1,000 mg PO Q4H PRN PRN Reason: Pain Al Hydroxide/Mg Hydroxide (Maalox Plus) 30 ml PO Q3H PRN PRN Reason: Indigestion Calcium Carbonate (Tums) 500 - 1,000 mg PO Q2H PRN PRN Reason: Indigestion Carboprost Tromethamine (Hemabate) 250 mcg IM O PRN PRN Reason: .Downtime Dextrose/Lactated Ringer's (Dextrose 5%-Lactated Ringers) 1,000 mls @ 125 mls/ hr IV .Q8H PRN PRN Reason: Labor Last Admin: 07/09/17 06:59 Dose: 125 mls/hr Oxytocin (Pitocin Drip) 30 unit in 500 mls @ 2 mls/hr IV .Q24H PRN; Protocol PRN Reason: Induction/Augmentation Last Admin: 07/09/17 07:00 Dose: 2 mls/hr Lactated Ringer's (Lactated Ringers) 1,000 mls @ 999 mls/hr IV .Q1H1M PRN Last Admin: 07/09/17 06:59 Dose: 999 mls/hr Oxytocin (Pitocin Drip) 30 unit in 500 mls @ 2 mls/hr IV .Q24H PRN; Protocol PRN Reason: Induction/Augmentation Lidocaine HCl (Xylocaine-Mpf 1% Vial) 0.2 mg ID O PRN PRN Reason: IV Start Methylergonovine Maleate (Methergine) 0.2 mg IM O PRN Misoprostol (Cytotec) 800 mcg TN ONCE PRN Allergies/Adverse Reactions: Allergies Allergy/AdvReac Type Severity Reaction Status Date / Time No Known Drug Allergies Allergy Mild Verified 07/09/17 11:36 - Home Medications Home Medications: Home Medications Medication Instructions Recorded Confirmed Type Vits W-Ca,Fe,Fa(<1MG) 1 tab PO DAILY #0 04/23/12 07/09/17 History () Tylenol 06/25/17 History Zyrtec 06/25/17 History - Medical History Respiratory: DENIES: Asthma, Sleep Apnea Cardiovascular: DENIES: Angina, Hypertension Gastrointestional: DENIES: Gastroesophageal Reflux Disease Neuro/Musculoskeletal: Denies: Other Renal/Endocrine: DENIES: Diabetes Mellitus Type 2 Other History: DENIES: Anesthesia Reactions - Surgical History Anesthesia Reactions: None Hx Family Anesthesia Reaction: No History of Motion Sickness: No - Social History Second Hand Exposure: No Substance Use Type: does not use - Pertinent Findings Lab Data: CBC and BMP 07/09/17 06:57 - Physical Exam Respiratory Exam: lungs clear, bilateral breath sounds equal Cardiovascular Exam: regular rate and rhythm - Airway Assessment Mallampati Score: I TMD: 2 Fingerbreadths Neck Extension: good Overall Assessment: may be difficult mask vent, may be difficult intubation - ASA ASA Score: 2 - Discussion Discussion: Discussed risks/options/alternatives of anesthesia and questions answered. Patient consents. Nursing pain assessment noted. Anesthesia Discussion: spouse Attestation Statement: Prior to the delivery of any anesthetic medication, I examined the patient, developed the plan, obtained the patient's consent and discussed the risk and benefits of the procedure with the patient/guardian.
[2017-07-09] MEDS ORDERED: ROPIVACAINE 1% 10MG/ML INJ 200 MG, SUFentanil 50 MCG in NS 100 ML EPI PRN (14:56)
[2017-07-09] MEDS ORDERED: NALOXONE 0.4 MG/ML INJECTION IVP PRN (14:56)
[2017-07-09] MEDS ORDERED: DiphenhydrAMINE 50 MG/ML INJECTION IVP PRN (14:56)
[2017-07-09] MEDS ORDERED: ONDANSETRON 4 MG/2 ML INJECTION IVP PRN (14:56)
[2017-07-09] MEDS ORDERED: HYDROCORTISONE 2.5% CREAM 30gm RECTALLY PRN (20:07)
[2017-07-09] MEDS ORDERED: HYDROCODONE/APAP 5mg/325mg TABLET PO PRN (20:07)
[2017-07-09] MEDS ORDERED: OXYTOCIN DRIP 30 UNIT/500 ML ML IV SCH (20:07)
[2017-07-09] MEDS ORDERED: DiphenhydrAMINE 25 MG CAPSULE PO PRN (20:07)
--- NOTE | 2017-07-10 08:40 | OB/GYN Progress Note ---
OB-PP Progress Note - General PPD1 Maternal Group B Strep: Negative Maternal blood type: A+ Maternal Rubella Status: Immune - Subjective Date: 07/10/17 Lochia: Minimal Pain: contolled Voiding: voiding - Objective Vital Signs: Last Vital Signs Temp 98.6 F 07/10/17 07:10 Pulse 67 07/10/17 07:10 Resp 16 07/10/17 07:10 BP 110/63 07/10/17 07:10 Pulse Ox 97 07/10/17 07:10 General: alert and oriented - Assessment Assessment: - Plan Plan: routine care, discharge home
--- NOTE | 2017-07-10 08:59 | Labor and Delivery Note ---
DATE OF DELIVERY 07/09/2017 DELIVERY NOTE Kelley is a 32-year-old 4, para 3 at 39 weeks 3 days gestational age who was brought in for an induction due to history of shoulder dystocia. She was started on Pitocin. Her membranes were ruptured artificially returning clear fluids. She received an epidural. She progressed steadily throughout labor. She only had to push for a short period of time and had a spontaneous vaginal delivery in the ANGELINE position of a viable female , Apgars 8/9, weight 3611 g, name "Kody." Baby was vigorous at delivery, so she was placed on mom's abdomen and the cord clamping was delayed for more than 2 minutes. The placenta was slow to deliver. We were having more bleeding than I would like, so the placenta was removed manually. Another manual exam of the uterus revealed the placenta had all been removed. The bleeding slowed down substantially at this point. There was a first-degree laceration that was not bleeding, so it was not repaired. Mom and baby tolerated the delivery well. SHANNON
[2017-07-10] MEDS ORDERED: DOCUSATE CALCIUM 240 MG CAPSULE PO SCH (09:00)
--- NOTE | 2017-07-10 10:11 | Anesthesia Postoperative Note ---
- Date and Time Date: 07/10/17 Time: 10:09 - Status Patient Participated in Evaluation: Patient Participated in Person Vital Signs: Temperature 98.6 F 07/10/17 07:10 Pulse Rate 67 07/10/17 07:10 Respiratory Rate 16 07/10/17 07:10 Blood Pressure 110/63 07/10/17 07:10 Pulse Oximetry 97 07/10/17 07:10 Respiratory Function: Airway Patent EKG: Sinus Rhythm Mental Status: Alert and Oriented Pain Intensity: 0 Hydration: Taking PO Fluids Complications During Recover: None Apparent Post Anesthesia Care Notes: full motor and sensation returned. no complications - Follow-Up Instructions Instructions: Per Surgeon
[2017-07-10] MEDS: IBUPROFEN 800 MG TABLET PO PRN ×2 (10:36→19:34)
[2017-07-10 20:41] VITALS: BP 120/70; PULSE 62; TEMP 98; O2SAT 99
== END 2017-07-10 19:51 | disposition home or self-care (01) | DRG 767 ==
LOC: MC 06:01
PROVIDERS: ADMIT Obstetrics & Gynecology; ATTEND Obstetrics & Gynecology